=== PATIENT | female | born 1960 | race Caucasian/White ===

== ENCOUNTER 2017-04-03 08:00 | Day surgery (SDC) | payer OTHER ==
[~2017-04-03] VITALS: Ht 172.7 cm; Wt 104.3 kg
[~2017-04-03 08:00] MED LIST: 0.9% Sodium Chloride 1,000 ML IV SCH; ATOR20TA PO; COLE625T PO; FLUT9.9S16 NS; INSU100I25 SQ; METF500T4 PO; PANT20TA2 PO; RELIEF PO; Sodium Chloride LOK Flush 10 mL Syringe IV PRN; VENL75TA3 PO; [UNRECOGNIZED DRUG - OTHER] PO; fentaNYL-PF 50 mCg/mL 2 mL Inj IVPUSH PRN
[2017-04-03 08:27] VITALS: BP 133/81; PULSE 71; RESP 17; O2SAT 96
[2017-04-03 09:29] VITALS: BP 105/71; PULSE 65; RESP 14; O2SAT 96
[2017-04-03 09:37] VITALS: BP 115/73; PULSE 69; RESP 14; O2SAT 96
--- NOTE | 2017-04-03 09:53 | ENDO ---
[address] [address] ENDOSCOPY PROCEDURE PATIENT: KAMRAN SILVERIO : 1960 MR#: [id number] ADMIT: 04/03/2017 JOB ID: [id number] PROCEDURE: Colonoscopy. INDICATION: The patient with a history of colon polyps, as well as complaints of diarrhea. ASA CLASSIFICATION: 2. MALLAMPATI SCORE: 2. MEDICATIONS: Versed 5 mg, fentanyl 100 mcg. INSTRUMENT USED: PCF-H180-AL. PREPARATION QUALITY: Fair. PROCEDURE DETAILS: After informed consent was obtained, the patient was brought into the GI suite, where she was placed on oxygen via nasal cannula and monitored with continuous pulse oximeter, telemetry, and blood pressure monitoring. A time-out was performed and then she was placed in a left lateral decubitus position. Medications were administered for sedation. Digital rectal exam was performed, which was unremarkable. The colonoscope was then inserted into the rectum and advanced under direct visualization to the cecum, which was identified by the presence of the ileocecal valve and appendiceal orifice. Once the cecum was reached, the colonoscope was withdrawn back into the rectum as the mucosa and lumen were examined. In the rectum, retroflexion was performed. Following retroflexion, remaining air in the rectum was suctioned, and procedure was completed. FINDINGS: 1. In the ascending colon, there was an approximately 4 mm sessile polyp that was removed with a cold snare. 2. In the transverse colon, there was what appeared to be a flat polyp on a fold. That was removed with cold biopsy forceps. 3. In the descending colon, there were two polyps, both diminutive, that were removed with cold biopsy forceps. 4. Multiple random biopsies were obtained throughout the colon secondary to the patient's complaint of diarrhea. IMPRESSION: 1. Ascending colon polyp. 2. Transverse colon polyp. 3. Two descending polyps. RECOMMENDATIONS: 1. Await biopsy results. 2. Follow up in GI clinic. 3. Continue current medications. COMPLICATIONS: None. ESTIMATED BLOOD LOSS: Less than 5 mL.
--- NOTE | 2017-04-04 10:58 | PATH ---
SURGICAL PATHOLOGY Attending Physician:Katerina Dougherty CASE STATUS: Signed Out PATIENT NAME: KAMRAN SILVERIO PID: [id number] : 1960 DATE COLLECTED:04/03/2017 16:54 SPECIMEN: 1: Colon, Biopsy 2: Colon, Polyp 3: Colon, Biopsy 4: Colon, Polyp CLINICAL HISTORY: 1. RANDOM COLON BIOPSIES 2. ASCENDING COLON POLYP 3. TRANSVERSE THICKENED FOLDS 4. DESCENDING COLON POLYP FINAL DIAGNOSIS: 1.RANDOM COLON BIOPSIES: FRAGMENTS OF NORMAL-APPEARING COLON MUCOSA. Negative for significant architectural distortion. Negative for significant inflammation, dysplasia and malignancy. 2.ASCENDING COLON POLYP: TUBULAR ADENOMA. 3.TRANSVERSE COLON, THICKENED FOLD BIOPSY: SESSILE SERRATED ADENOMA INVOLVING TWO BIOPSY FRAGMENTS. 4.DESCENDING COLON POLYP: TUBULAR ADENOMA INVOLVING SINGLE BIOPSY FRAGMENT. HYPERPLASTIC POLYP INVOLVING SINGLE BIOPSY FRAGMENT. ICD10 D12.2 GROSS DESCRIPTION: The specimen is received in four formalin filled containers labeled with the patient's name. 1). The specimen is sublabeled "random colon biopsies" and consists of multiple portions of tissue which aggregate to 0.5 x 0.4 x 0.3 CM. The specimen is entirely submitted in cassette 1A. 2). The specimen is sublabeled "ascending polyp" and consists of a 0.3 x 0.2 x 0.2 CM portion of tissue which is entirely submitted in cassette 2A. 3). The specimen is sublabeled "transverse thickened folds" and consists of multiple extremely tiny portions of tissue which aggregate to 0.3 x 0.3 x 0.2 CM. The specimen is filtered and entirely submitted in cassette 3A. 4). The specimen is labeled "descending polyp" and consists of 2 portions of tissue which aggregate to 0.3 x 0.3 x 0.2 CM. The specimen is entirely submitted in cassette 4A. 04/03/2017 DAC MICRO DESCRIPTION: See diagnosis. ICD-9 CODES: CPT CODES: 1: 58823 2: 16402 3: 98425 4: 70805 Electronically Signed Out Hayes Abernathy MD [facility] [place] [address] Technical component performed at [facility], [facility] [address], [place], [address]
== END 2017-04-03 23:59 | disposition home or self-care (01) ==
LOC: END 08:00
PROVIDERS: ATTEND Internal Medicine Gastroenterology
DX: Z12.11 Encounter for screening for malignant neoplasm of colon (principal); D12.2 Benign neoplasm of ascending colon; D12.3 Benign neoplasm of transverse colon; D12.4 Benign neoplasm of descending colon; Z86.010 Personal history of colon polyps; R19.7 Diarrhea, unspecified; K31.84 Gastroparesis; K21.9 Gastro-esophageal reflux disease without esophagitis; F41.9 Anxiety disorder, unspecified; E78.5 Hyperlipidemia, unspecified; G47.8 Other sleep disorders; K58.9 Irritable bowel syndrome, unspecified; Z87.891 Personal history of nicotine dependence; Z79.82 Long term (current) use of aspirin; Z79.4 Long term (current) use of insulin; Z79.84 Long term (current) use of oral hypoglycemic drugs
CPT/HCPCS: 45380; 45385; 99153; G0500; J2250; J3010; J7030